=== PATIENT | female | born 1955 | race Caucasian/White ===

== ENCOUNTER 2022-02-20 09:15 | Observation (INO) | payer MEDICARE ==
[2022-02-20] VITALS (24 sets, daily range): BP systolic 93–138; BP diastolic 51–73
[~2022-02-20] VITALS: Ht 167.6 cm; Wt 61.0 kg
[~2022-02-20 09:15] MED LIST: LOVASTATIN PO; micardis PO
--- NOTE | 2022-02-20 09:53 | NUR ---
PATIENT AMBULATORY TO ROOM IN NAD. PROVIDER NOTIFIED OF PATIENT STATUS.
[2022-02-20 10:09] LABS: HEMATOCRIT 35.7 % (37.0-47.0); HEMOGLOBIN 11.4 g/dl (12.0-16.0); IMMATURE GRANULOCYTES 0.9 % (0.0-5.0); MEAN CELL VOLUME 107.2 fL CALC (80.0-100.0); MEAN CORPUSCULAR HGB 34.2 pG CALC (26.0-32.0); MEAN CORPUSCULAR HGB CONC 31.9 g/dL CAL (32.0-36.0); NEUT# 2.4 thou/uL (2.00-7.15); RED BLOOD COUNT 3.33 mill/uL (4.20-5.60); RED CELL DISTRI WIDTH 14.4 % (11.5-15.5)
[2022-02-20] MEDS ORDERED: WELLBUTRIN XL300 MG PO (10:12)
[2022-02-20] MEDS ORDERED: NORVASC10 M1 PO (10:13)
[2022-02-20 10:49] LABS: ALBUMIN 3.8 g/dL (3.2-5.0); CREATININE 1.3 mg/dL (0.5-1.0); TOTAL PROTEIN 6.9 g/dL (6.3-8.2)
[2022-02-20 10:50] LABS: POTASSIUM 3.5 mmol/l (3.5-5.1)
[2022-02-20 10:51] LABS: BILIRUBIN, TOTAL 0.3 mg/dL (0.0-1.4)
[2022-02-20 12:59] LABS: URINE BILIRUBIN - DIPSTICK NEGATIVE (NEGATIVE); URINE BLOOD DIPSTICK NEGATIVE (NEGATIVE); URINE COLOR YELLOW; URINE GLUCOSE - DIPSTICK NEGATIVE (NEGATIVE); URINE KETONE NEGATIVE (NEGATIVE); URINE LEUK ESTERASE NEGATIVE (NEGATIVE); URINE PROTEIN - DIPSTICK NEGATIVE (NEG-TRACE); URINE UROBILINOGEN - DIPSTICK 0.2 E.U./dL (0.2)
[2022-02-20 13:05] LABS: URINE NITRITE - DIPSTICK NEGATIVE (Negative)
[2022-02-20] MEDS ORDERED: FENOFIBRATE145 MG PO (13:37)
--- NOTE | 2022-02-20 14:30 | NUR ---
PT ARRIVED TO ICU VIA STRETCHER WITH CEMENT PAVER. PT IS ON RA, A&O, NO C/O PAIN, SOB. PT HAS SOME ABD TENDERNESS. PT HAS PROTONIX INFSUING AND NS. PT HAS WALKED FROM BED TO STRETCHER, GAIT IS STEADY. PT HAS FOLLOWS COMMANDS AND ANSWERS QUESTIONS APPROPRIATELY. PT HAS CALL LIGHT NEAR AND WILL MAKE HER NEEDS KNOWN. PT HAS BEEN PLACED ON ISOLATION, WILL CONTINUE TO MONITOR.
--- NOTE | 2022-02-20 14:39 | NUR ---
PT XFER TO ICU1. PT IN NO ACUTE DISTRESS. BEDSIDE REPORT GIVEN TO SENSOR TECHNICIAN
--- NOTE | 2022-02-20 16:00 | NUR ---
PT AMBULATED TO BR, GAIT STEADY. PT REQUESTING NICOTINE PATCH, WILL MAKE CALL TO , PT HAS NO CHANGE TO ASSESSMENT. PT BACK IN BED, CALL LIGHT NEAR.
[2022-02-20 19:54] LABS: HEMOGLOBIN 10.2 g/dl (12.0-16.0)
--- NOTE | 2022-02-20 20:03 | NUR ---
PATIENT SITTING UP IN CHAIR AT THIS TIME. PATIENT IS ALERT AND ORIENTED AT THIS TIME X 3 (DAUGHTER JUST LEAVING ROOM). PATIENT DENIES ANY PAIN CURRENTLY AND LUNG COULTER ARE CLEAR. PATIENT AUDIT SPEC IS READING S/R AND HR OF 82 SPO2 ON ROOM AIR IS 94%. PATIENT BOWEL SOUNDS ARE PRESENT AT THIS TIME. NO EDEMA NOTED ANYWHERE. PATIENT SIDERAILS ARE UP X 2 AND CALL LIGHT IS WITHIN REACH. DIGITAL SALES REPRESENTATIVE DONE SEE INTERVENTIONS.
--- NOTE | 2022-02-20 21:48 | NUR ---
PATIENT PLACED ON 2L OF O2 AT THIS TIME DUE TO SPO2 DROPPING INTO HI 80'S RANGE. SPO2 CURRENTLY ON 2L IS 94%. WILL CONTINUE TO MONIOTOR.
--- NOTE | 2022-02-20 23:34 | NUR ---
PATIENT ASSISTED UP TO BEDSIDE COMMODE WHERE PATIENT VOIDED 400 ML OF CLEAR YELLOW URINE AND THEN WAS ASSISTED BACK TO BED. PATIENT STATES "MY STOMACH IS GRUMBLING BUT I AM OKAY AND I HAVE NO PAIN". PATIENTS BOWEL SOUNDS ARE ACTIVE IN ALL FOUR QUADRANTS AT THIS TIME. PATIENT REMAINS ON 02 AT 2 LITERS AND HER SPO2 IS CURRENTLY 95%. TANK TRUCK DRIVER IS READING SINUS RHYTHM AND HR 77. SIDERAILS ARE UP CALL LIGHT IS WITHIN REACH WILL CONTINUE TO MONITOR.
[2022-02-21] VITALS (24 sets, daily range): BP systolic 86–132; BP diastolic 43–68
--- NOTE | 2022-02-21 02:02 | NUR ---
PATIENT IN BED WITH EYES CLOSES AND RESPIRATIONS EASY AND UNLABORED AT THIS TIME. 02 REMAINS ON 2L NASAL CANNULA AND SPO2 IS CURRENTLY 97%. SIDERAILS ARE UP CALL LIGHT IS WITHIN REACH .
--- NOTE | 2022-02-21 04:00 | NUR ---
PATIENT UP TO BEDSIDE COMMODE TO VOID AT THIS TIME AND DISLODGED LAC IV SITE. IV CANNULA REMOVED AT THIS TIME TIP INTACT. PATIENT ASSISTED BACK TO BED AT THIS TIME REPOSITIONED IN BED SIDERAILS ARE UP [address] AND SPO2 IS CURRENTLY 95%. PATIENT DENIES ANY PAIN AT THIS TIME.
[2022-02-21 05:40] LABS: HEMATOCRIT 29.3 % (37.0-47.0); HEMOGLOBIN 9.3 g/dl (12.0-16.0); IMMATURE GRANULOCYTES 0.9 % (0.0-5.0); MEAN CELL VOLUME 108.5 fL CALC (80.0-100.0); MEAN CORPUSCULAR HGB 34.4 pG CALC (26.0-32.0); MEAN CORPUSCULAR HGB CONC 31.7 g/dL CAL (32.0-36.0); NEUT# 2.31 thou/uL (2.00-7.15); RED BLOOD COUNT 2.7 mill/uL (4.20-5.60); RED CELL DISTRI WIDTH 14.5 % (11.5-15.5)
[2022-02-21 05:56] LABS: ALKALINE PHOSPHATASE 49 u/l (38-126); ANION GAP 9 (6-22 (CALC)); BUN 18 mg/dL (8-23); BUN/CREATININE RATIO 19 (12-20 (CALC)); CARBON DIOXIDE 22 mmol/l (22-30); CHLORIDE 110 mmol/l (95-108); CREATININE 0.9 mg/dL (0.5-1.0); GFR FOR AFR.AMER. > 60 ML/MIN (>=60 (CALC)); GFR OTHER RACES > 60 ML/MIN (>=60 (CALC)); MAGNESIUM 1.6 mg/dL (1.6-2.3); POTASSIUM 3.2 mmol/l (3.5-5.1); SGOT/AST 38 u/l (9-36); SODIUM 137 mmol/l (137-146)
[2022-02-21 05:57] LABS: TOTAL PROTEIN 5.4 g/dL (6.3-8.2)
--- NOTE | 2022-02-21 06:03 | NUR ---
PATIENT RESTING IN BED ALERT AND ORIENTED X 3 02 ON AT 2 LITERS AND SPO2 CURRENTLY IS 97%. SIDERAILS ARE UP CALL LIGHT IS WITHIN REACH.
--- NOTE | 2022-02-21 07:33 | NUR ---
PT HAS BEEN ASSISTED TO BATHROOM, PT STATES SHE FEELS WEAKER THAN YESTERDAY, PT HAS MINIMAL ABD TENDERNESS. PT IS A&O, FOLLOWS COMMANDS AND IS ABLE TO MAKE HER NEEDS KNOWN. PT HAS IVF INFUSING, EDUCATED PT THAT A STOOL SMAPLE IS NEEDED, HAT HAS BEEN PLACED. PT NPO. PT ON 2LNC. PT SAFELY BACK IN BED, AND HAS CALL LIGHT NEAR. WILL CONTINUE TO MONITOR AND WILL UPDATE PT WITH POC.
--- NOTE | 2022-02-21 08:30 | NUR ---
PT PHYS AT BEDSIDE, NEW ORDERS R'CD. SPOKE TO DR. ROSARIO, PT CONSENT HAS BEEN SIGNED AND PLACED ON TOP OF CHART. PT EDUCATED ON PROCEDURE SCHEDULED FOR LATER TODAY. PT HAS FAMILY AT BEDSIDE. ALL PT JWELRY GIVEN TO FAMILY. PT HAS CALL LIGHT NEAR AND WILL CONTINUE TO MONITOR.
--- NOTE | 2022-02-21 10:20 | NUR ---
PT HAS BEEN TAKEN TO OR FOR PROCEDURE.
--- NOTE | 2022-02-21 13:00 | NUR ---
PT ARRIVED BACK TO ROOM WITH ENGINE BUILDUP MECHANIC. PT IS AWAKE AND TALKING, STATES SHE NEEDS TO USE THE BATHROOM. PT WAS ASSISTED, PT HAS NO PAIN OR DISCOMFORT AT THIS TIME. PT PLACED ON MONITORS. PT HAS CALL LIGHT NEAR. PT HAS NO CHANGE TO ASSESSMENT. PT IS CURRENTLY ON RA.
[2022-02-21 13:36] LABS: HEMOGLOBIN 9.3 g/dl (12.0-16.0)
--- NOTE | 2022-02-21 15:10 | NUR ---
1500 - Hand off report received from CHITO Avendano.
--- NOTE | 2022-02-21 16:52 | NUR ---
Lab at bedside
[2022-02-21 17:03] LABS: HEMATOCRIT 31.8 % (37.0-47.0)
--- NOTE | 2022-02-21 19:10 | NUR ---
PATIENT IV IN RAC REMOVED AT THIS TIME PATIENT STATED IT IS DISCOMFORTING AND EARLY IN THE DAY SHE STATED SHE OBTAINED A SKIN TEAR DUE TO HAVING TAPE ON HER SKIN. IV WAS REMOVED DUE TO PATIENT HAVING A SECOND IV IN THE LFA #20 WHICH IS INTACT AND FLUSHING WELL. SKIN TEAR NOTED UNDER TAPED GAUZE AND DRESSING REMOVED AND MED HONEY AND TELFA PAD PLACED WITH KOBAND TO HOLD. PATIENT STATES "THAT FEELS SO MUCH BETTER". SIDERAILS ARE UP CALL LIGHT IS WIHTIN REACH PATIENT STATED "I FEEL SO MUCH BETTER SINCE THEY TOOK ME DOWN TO MY PROCEEDURE". PATIENT IS CURRENLY ON ROOM AIR AND SPO2 IS CURRENTLY 91 % REHAB SPECIALIST SHOWING SINUS RHYTHM AND HEART RATE OF 92. LUNG COULTER ARE CLEAR IN ALL LOBES AND BOWEL SOUNDS PRESENT. PATIENT DENIES ANY PAIN AT THIS TIME. WILL CONTINUE TO MONITOR.
--- NOTE | 2022-02-21 22:02 | NUR ---
PATIENT IN BED WATCHING TV AT THIS TIME. PATIENT DENIES ANY NEEDS AND OR PAIN. CONSTRUCTION EQUIPMENT MECHANIC SHOWING S/R AND HR OF 81. PATIENT IS WEARING O2 NASAL CANNULA AT THIS TIME ON 2 LITERS AND SPO2 IS CURRENLTY 96%. SIDERAILS ARE UP CALL LIGHT IS WITHIN REACH.
--- NOTE | 2022-02-21 23:50 | NUR ---
PATIETN RESTING IN BED AT THIS TIME. PATIENT DENIES ANY PAIN AND OR NEEDS. SCALEMAN READING SR AND HR AT 87. 02 REMAINS ON AT 2 LITERS SPO2 IS CURRENTLY 95% SIDERAILS ARE UP CALL LIGHT WITHIN REACH.
[2022-02-22] VITALS (12 sets, daily range): BP systolic 112–130; BP diastolic 52–71
--- NOTE | 2022-02-22 03:56 | NUR ---
PATIENT RESTING IN BED DENIES ANY NEEDS CURRENTLY. MARKET SUPERINTENDENT READING SINUS RHYTHM AND HR OF 79. PATIENT REMAINS ON 2 LITERS OF O2 AND SPO2 IS CURRENTLY 95%. SIDERAILS ARE UP CALL LIGHT NEAR.
[2022-02-22 05:43] LABS: HEMATOCRIT 29.3 % (37.0-47.0); HEMOGLOBIN 9.5 g/dl (12.0-16.0); MEAN CELL VOLUME 108.1 fL CALC (80.0-100.0); MEAN CORPUSCULAR HGB 35.1 pG CALC (26.0-32.0); MEAN CORPUSCULAR HGB CONC 32.4 g/dL CAL (32.0-36.0); RED BLOOD COUNT 2.71 mill/uL (4.20-5.60); RED CELL DISTRI WIDTH 14.4 % (11.5-15.5)
[2022-02-22 06:08] LABS: ANION GAP 8 (6-22 (CALC)); BUN 8 mg/dL (8-23); BUN/CREATININE RATIO 9 (12-20 (CALC)); CARBON DIOXIDE 23 mmol/l (22-30); CHLORIDE 109 mmol/l (95-108); CREATININE 0.8 mg/dL (0.5-1.0); GFR FOR AFR.AMER. > 60 ML/MIN (>=60 (CALC)); GFR OTHER RACES > 60 ML/MIN (>=60 (CALC)); POTASSIUM 3.2 mmol/l (3.5-5.1); SODIUM 137 mmol/l (137-146)
--- NOTE | 2022-02-22 07:21 | NUR ---
RECEIVE REPORT FROM TREY DALE.
--- NOTE | 2022-02-22 07:24 | NUR ---
PATIENT ALERT AND ORIENTED X3. VITAL SIGN STABLE AT THIS TIME. ERINN RESTING IN BED ACCOMPANIED BY HER DAUGHTER. PATIENT IS EDUCATED ABOUD MEDICATIONS AND NURSING PLAN FOR TODAY. PATIENT REFER UNDERSTAND. FALL AND SAFETY PRECAUTIONS IN PLACE. CALL LIGHT IS WITHIN REACH.
--- NOTE | 2022-02-22 09:45 | NUR ---
PATIENT IS DISCHARGED STABLE AT THIS TIME. PATIENT IS EDUCATED ABOUD MEDICATIOSN AT HOME AND DOCTOR FOLLOW UP.
== END 2022-02-22 10:00 | disposition home or self-care (01) ==
LOC: ED 09:15 → ED-I 11:46 → ED 12:09 → ICU 12:09
PROVIDERS: Family Medicine; Internal Medicine; Nurse Practitioner; ADMIT Hospitalist; ATTEND Hospitalist
PROC: 0W3P8ZZ Control Bleeding in Gastrointestinal Tract, Via Natural or Artificial Opening Endoscopic (ICD-10-PCS; principal; 2022-02-21)
PROC: 0DJ08ZZ Inspection of Upper Intestinal Tract, Via Natural or Artificial Opening Endoscopic (ICD-10-PCS; 2022-02-21)
DX: K55.21 Angiodysplasia of colon with hemorrhage (principal); D62 Acute posthemorrhagic anemia; I95.9 Hypotension, unspecified; U07.1 COVID-19; K57.10 Diverticulosis of small intestine without perforation or abscess without bleeding; E87.6 Hypokalemia; E83.42 Hypomagnesemia; I10 Essential (primary) hypertension; F17.200 Nicotine dependence, unspecified, uncomplicated; F41.9 Anxiety disorder, unspecified; F32.A Depression, unspecified; E78.00 Pure hypercholesterolemia, unspecified
CPT/HCPCS: J3475; Q9967; S0164